=== PATIENT | female | born 1980 | race Asian ===

== ENCOUNTER 2017-04-13 11:46 | Emergency (ER) | payer OTHER ==
[~2017-04-13] VITALS: Ht 160 cm; Wt 50.0 kg
[~2017-04-13 11:46] MED LIST: IBUP-238 PO
[2017-04-13 11:51] VITALS: BP 129/72; PULSE 71; RESP 15; TEMP 98.4; O2SAT 100
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
--- NOTE | 2017-04-13 13:55 | PD ---
Physical Exam Time Seen by Provider: 13:55 Data Data Last Documented VS Vital Signs Date Time Temp Pulse Resp B/P (MAP) Pulse Ox O2 Delivery O2 Flow Rate FiO2 04/13/17 13:52 67 18 100 Room Air 04/13/17 11:51 98.4 129/72 (91) Orders Orders Ribs, Bilat(W/Exp Cxr-Min 4vw) (04/13/17 12:21) Sternum - Min 2 Vws (04/13/17 ) Ketorolac Inj (Toradol Inj) (04/13/17 14:00) Orphenadrine Inj (Norflex Inj) (04/13/17 14:00) MDM Condition: Stable Nuria Beth Apr 13, 2017 13:55
[2017-04-13] MEDS ORDERED: ORPHENADRINE INJ 60 MG/2 ML AMP IM ONE (14:00)
[2017-04-13] MEDS ORDERED: KETOROLAC TROMETHAMINE 60 MG/2 ML (IM) VIAL IM ONE (14:00)
[2017-04-13] MEDS ORDERED: ROBA500T PO (14:43)
[2017-04-13] MEDS ORDERED: IBUP-232 PO (14:43)
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
== END 2017-04-13 15:06 | disposition home or self-care (01) ==
LOC: NETRI 11:46 → NEPD 15:06
DX: S20.219A Contusion of unspecified front wall of thorax, initial encounter (principal); V49.40XA Driver injured in collision with unspecified motor vehicles in traffic accident, initial encounter
CPT/HCPCS: 71111; 71120; 96372; 99284; J1885; J2360

== ENCOUNTER 2017-04-15 10:04 | Emergency (ER) | payer OTHER ==
[~2017-04-15] VITALS: Ht 160 cm; Wt 51.0 kg
[~2017-04-15 10:04] MED LIST changes: +IBUP-232 PO; +ROBA500T PO
[2017-04-15 10:06] VITALS: BP 128/75; PULSE 81; RESP 12; TEMP 98.6; O2SAT 98
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
[2017-04-15 12:35] VITALS: BP 122/72
== END 2017-04-15 12:52 | disposition home or self-care (01) ==
LOC: NEPD 10:04
DX: G44.319 Acute post-traumatic headache, not intractable (principal); S16.1XXA Strain of muscle, fascia and tendon at neck level, initial encounter; V89.2XXA Person injured in unspecified motor-vehicle accident, traffic, initial encounter
CPT/HCPCS: 70450; 72125; 99284